=== PATIENT | female | born 1985 | race Caucasian/White ===

== ENCOUNTER 2016-12-08 12:49 | Emergency (ER) | payer SELFPAY ==
[~2016-12-08] VITALS: Ht 157.5 cm; Wt 52.2 kg
[2016-12-08 13:17] VITALS: BP 146/88
[2016-12-08 13:38] LABS: BILIRUBIN,URINE NEGATIVE (NEG); GLUCOSE,URINE NEGATIVE (NEG); NITRITE,URINE NEGATIVE (NEG); PROTEIN,URINE NEGATIVE (NEG-TRACE); UROBILINOGEN,URINE 0.2 mg/dL (0.2 mg/dL)
[2016-12-08 13:49] LABS: BACTERIA,URINE FEW /HPF (0-FEW); RBC,URINE OCC /HPF (0-2); SQUAMOUS EPITHELIAL CELL,UR OCC /LPF
[2016-12-08] MEDS ORDERED: SULF1TAB24 PO (14:22)
[2016-12-08] MEDS ORDERED: METR500T PO (14:22)
--- NOTE | 2016-12-08 14:22 | PHYS DOC ---
Past Medical History Past Medical History: No Pertinent History Past Surgical History: Other Additional Past Surgical Histo: I&D CYST Alcohol Use: None Drug Use: None Adult General Chief Complaint Chief Complaint: VAGINAL PROBLEM HPI HPI Patient is a 31 year old female who presents with vaginal discharge that began today. Patient sustained a week ago she had intercourse and noted she was spotting after sex. Patient denies any chance she is . Denies any concerns for STDs. She states she has had the same partner for 8 years. Review of Systems Review of Systems Constitutional: Denies fever or chills [] Eyes: Denies change in visual acuity, redness, or eye pain [] HENT: Denies nasal congestion or sore throat [] Respiratory: Denies cough or shortness of breath [] Cardiovascular: No additional information not addressed in HPI [] GI: Vaginal discharge and spotting once during sex : Denies dysuria or hematuria [] Musculoskeletal: Denies back pain or joint pain [] Integument: Denies rash or skin lesions [] Neurologic: Denies headache, focal weakness or sensory changes [] Endocrine: Denies polyuria or polydipsia [] Allergies Allergies Allergies Coded Allergies Type Severity Reaction Last Updated Verified No Known Drug Allergies 06/03/15 No Physical Exam Physical Exam Constitutional: Well developed, well nourished, no acute distress, non-toxic appearance. [] HENT: Normocephalic, atraumatic, bilateral external ears normal, oropharynx moist, no oral exudates, nose normal. [] Eyes: PERRLA, EOMI, conjunctiva normal, no discharge. [] Neck: Normal range of motion, no tenderness, supple, no stridor. [] Cardiovascular:Heart rate regular rhythm, no murmur [] Lungs & Thorax: Bilateral breath sounds clear to auscultation [] Abdomen: Bowel sounds normal, soft, no tenderness, no masses, no pulsatile masses. [] Pelvic exam External pelvic was noted to have a tiny skin tag on the vaginal entrance. Cervix was not well visualized due to moderate amount of white vaginal discharge in the vaginal vault. No adnexal tenderness. No CMT. Skin: Warm, dry, no erythema, no rash. [] Back: No tenderness, no CVA tenderness. [] Extremities: No tenderness, no cyanosis, no clubbing, ROM intact, no edema. [] Neurologic: Alert and oriented X 3, normal motor function, normal sensory function, no focal deficits noted. [] Psychologic: Affect normal, judgement normal, mood normal. [] Current Patient Data Vital Signs Vital Signs Date Time Temp Pulse Resp B/P (MAP) Pulse Ox O2 Delivery O2 Flow Rate FiO2 12/08/16 13:17 99.0 86 18 96 Room Air 99.0 Lab Values Laboratory Tests Test 12/08/16 12:16 12/08/16 13:20 POC Urine HCG, Qualitative Hcg negative (Negative) Urine Color Yellow Urine Clarity Clear Urine pH 7.0 Urine Specific [place] 1.010 Urine Protein Negative mg/dL (NEG-TRACE) Urine Glucose (UA) Negative mg/dL (NEG) Urine Ketones (Stick) Negative mg/dL (NEG) Urine Blood Negative (NEG) Urine Nitrite Negative (NEG) Urine Bilirubin Negative (NEG) Urine Urobilinogen Dipstick 0.2 mg/dL (0.2 mg/dL) Urine Leukocyte Esterase Large (NEG) Urine RBC Occ /HPF (0-2) Urine WBC 5-10 /HPF (0-4) Urine Squamous Epithelial Cells Occ /LPF Urine Bacteria Few /HPF (0-FEW) Microbiology 12/08/16 Wet Prep - Final, Complete EKG EKG [] Radiology/Procedures Radiology/Procedures [] Course & Med Decision Making Course & Med Decision Making Pertinent Labs and Imaging studies reviewed. (See chart for details) Patient is in the ED with vaginal discharge and one episode of spotting during sex. She does have a skin tag on her vaginal entrance. It's unknown if this skin tag could have been the source of the bleeding considering she noted skin tag recently. Recommended lubricant during sex. Negative urine hCG, wet prep positive for BV. Discharge and Flagyl. Urine positive for UTI, discharged Bactrim. Follow-up with OB in one week. Dragon Disclaimer Dragon Disclaimer This electronic medical record was generated, in whole or in part, using a voice recognition dictation system. Departure Departure Impression: Primary Impression: Urinary tract infection Additional Impressions: Bacterial vaginosis Skin tag Disposition: HOME, SELF-CARE Condition: STABLE Referrals: NO PCP (PCP) Follow-up with your doctor in 1-2 weeks Patient Instructions: Bacterial Vaginosis, Urinary Tract Infection Additional Instructions: You tested positive for bacterial vaginosis and urinary tract infection. Take the prescribed antibiotics as ordered ensure you complete them. Follow-up with your [facility] in 1-2 weeks. Use lubricant during sex. Also follow-up with your OB/ [facility] for this skin tag on the vaginal entrance. Scripts Sulfamethoxazole/Trimethoprim (BACTRIM DS TABLET) 1 Each Tablet 1 TAB PO BID, #14 TAB Prov: LUCILLE CHAND APRN 12/08/16 Metronidazole (FLAGYL) 500 Mg Tablet 1 TAB PO BID, #14 TAB Prov: LUCILLE CHAND APRN 12/08/16 Problem Qualifiers Primary Impression: Urinary tract infection Urinary tract infection type: acute cystitis Hematuria presence: without hematuria Qualified Codes: N30.00 - Acute cystitis without hematuria LUCILLE CHAND APRN Dec 08, 2016 14:22
== END 2016-12-08 14:26 | disposition home or self-care (01) ==
LOC: ER 12:49
DX: N30.00 Acute cystitis without hematuria (principal); N76.0 Acute vaginitis
CPT/HCPCS: 81001; 81025; 87491; 87591; 99284; Q0111

== ENCOUNTER 2017-05-04 15:59 | Emergency (ER) | payer SELFPAY ==
[2017-05-04] MEDS: LIDOCAINE WITH 8.4% SOD BICARB 3 ML DISP.SYRIN. IJ (16:46)
== END 2017-05-04 17:30 | disposition home or self-care (01) ==
LOC: ER 15:59
DX: S31.40XA Unspecified open wound of vagina and vulva, initial encounter (principal); X58.XXXA Exposure to other specified factors, initial encounter; Y93.89 Activity, other specified; Y92.89 Other specified places as the place of occurrence of the external cause; Y99.8 Other external cause status
CPT/HCPCS: 96372; 99284-25

== ENCOUNTER 2019-05-05 21:06 | Emergency (ER) | payer SELFPAY ==
[2017-05-04 16:12] VITALS: BP 140/79
[~2019-05-05 21:06] MED LIST: METR500T PO; SULF1TAB24 PO
== END 2019-05-05 22:15 | disposition left against medical advice (07) ==
LOC: ER 21:06
DX: K08.89 Other specified disorders of teeth and supporting structures (principal); Z53.21 Procedure and treatment not carried out due to patient leaving prior to being seen by health care provider

== ENCOUNTER → 2020-08-07 | Outpatient (CLI) | payer SELFPAY ==
[2017-05-04 16:12] VITALS: BP 140/79
[~2020-08-07] MED LIST changes: +DOCU-109 PO; +IBUP-1060 PO
== END ==
LOC: LAB 12:30
PROVIDERS: ATTEND Obstetrics & Gynecology
DX: Z01.812 Encounter for preprocedural laboratory examination (principal); Z20.822 Contact with and (suspected) exposure to COVID-19
CPT/HCPCS: U0003; U0005